=== PATIENT | female | born 2000 | race Caucasian/White ===

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

== ENCOUNTER 2022-02-16 13:08 | Emergency (ER) | payer BC, SELFPAY ==
[2022-02-16 13:10] VITALS: BP 114/79; PULSE 85; RESP 18; TEMP 36.7; O2SAT 98; BMI 29.5
--- NOTE | 2022-02-16 17:36 | ED.VIS.GI ---
HPI HPI - GI History of Present Illness Chief Complaint: Nausea/Vomiting Narrative Narrative: 21-year-old female, G1, P0 at approximately 11 weeks gestation presents because she states she has been vomiting since Wednesday, 2 days ago. She is unable to hold down any food or liquid. She denies any vaginal bleeding or abdominal pain. No chest pain or shortness of breath, no fevers or chills, no dysuria. She states she is already on medication for morning sickness but does not remember which one it is. She sees Dr. Yeny Rodriguez at the [facility] as her SALES RECEPTIONIST. She states that she even vomits her antinausea medications. She does feel somewhat weak and tired from her multiple episodes of vomiting. She states she vomited at least 20 times in the last 24 hours. No diarrhea or other symptoms. PFSH PFSH Home Medications doxylamine 10 mg-pyridoxine (vit B6) 10 mg tablet,delayed release 2 tab PO QHS 02/16/22 [History Last Taken Unknown] ondansetron 4 mg disintegrating tablet 4 mg PO Q6H PRN nausea and vomiting #20 tabs 02/16/22 [Rx Last Taken Unknown] Allergy/AdvReac Type Severity Reaction Status Date / Time No Known Allergies Allergy Verified 02/16/22 13:10 Surgical History History of placement of ear tubes Social History (Updated 04/21/17 @ 09:07 by Ishaan Rhodes DO) Smoking Status: Former smoker ROS ROS ED ROS Narrative Constitutional: No fever, no chills. HEENT: No sore throat. No neck pain. No loss of vision. No rhinorrhea. Cardiovascular: No chest pain. No palpitations. No pedal edema. Respiratory: No cough, no shortness of breath. Abdominal: No abdominal pain. Positive nausea. Multiple episodes of vomiting. Genitourinary: No dysuria. No hematuria. 11 weeks gestation with . Musculoskeletal: No myalgias. No arthralgias. Neurologic: No headaches. No dizziness. No lightheadedness. Skin: No rash. No change in color. Psychiatric: No depression. No anxiety. EXAM Physical Exam Narrative Exam Narrative: Afebrile. Vital signs noted. HEENT: Normocephalic. Atraumatic. PERRL, EOMI. Neck soft and supple. No point tenderness or step off. Cardiovascular: Regular rate and rhythm. No murmurs, rubs, or gallops appreciated. Respiratory: No tachypnea. Lungs clear to auscultation bilaterally. Gastrointestinal: Abdomen soft, nontender, with normoactive bowel sounds. No rebound or guarding. Neurological: Awake. Alert. Nonfocal, nonlateralizing. Skin: No rash. Normal color. No pallor. Musculoskeletal: No pedal edema. Full range of motion extremities. Const Vital Signs: 02/16/22 13:10 02/16/22 19:33 Temperature 98.1 F Temperature Source Temporal Pulse Rate 85 74 Respiratory Rate 18 18 Blood Pressure 114/79 111/58 L Blood Pressure Mean 90 75 Pulse Ox 98 99 Oxygen Delivery Method Room Air Room Air MDM MDM MDM Narrative Medical decision making narrative: PretestPatient is afebrile here, not tachycardic. She will be given a bolus of IV fluids, normal saline along with Reglan 5 mg intravenously. I will check a CBC, CMP, urinalysis and discussed the patient with SALES RECEPTIONIST. Should she fail p.o. challenge, she may require admission for her hyperemesis gravidarum. CBC shows slightly elevated white count of 12.6 which I think is demargination from her vomiting. She has normal hemoglobin of 13.0, platelet count 321 seems a little over 3.4. Urinalysis is a contaminated specimen with 5-10 squamous epithelial cells but positive nitrites. There were 150 ketones. This was sent for culture. She is not having dysuria, I do not feel antibiotics are indicated currently because I feel it is a contaminated specimen. After Reglan and IV bolus, she states she is feels tired, but has not had vomiting in the emergency department and her nausea has improved. I discussed patient with the wood mill supervisor, Rupinder, who suggested Zofran ODT's as second line as her vitamin B6 is not effective in treating her nausea and vomiting. She will follow-up with her SALES RECEPTIONIST, Dr. Rodriguez. She states she has an appointment a week from today. I feel she be discharged safely home with follow-up. Return instructions were reviewed. Disposition is discharged home in stable condition. Lab Data Attestation: I reviewed the patient's lab results. Labs: Laboratory Results - last 24 hr 11/02/16/22 02/16/22 17:50 17:50 19:31 WBC 12.6 H RBC 4.35 Hgb 13.0 Hct 38.2 MCV 87.8 MCH 29.9 MCHC 34.0 RDW Std Deviation 38.9 RDW Coeff of Maryana 12.0 Plt Count 321 MPV 10.3 Immature Gran % (Auto) 0.400 Neut % (Auto) 82.3 H Lymph % (Auto) 12.6 L Zavala % (Auto) 4.2 Eos % (Auto) 0.3 Baso % (Auto) 0.2 Absolute Neuts (auto) 10.4 H Absolute Lymphs (auto) 1.59 Nucleated RBC % 0 Sodium 137 Potassium 3.4 L Chloride 105 Carbon Dioxide 24.0 Anion Gap 8 BUN 8 Creatinine 0.62 Estim Creat Clear Calc 150.00 Est GFR (MDRD) Af Amer 156 Est GFR (MDRD) Non-Af 129 BUN/Creatinine Ratio 12.9 Glucose 84 Calcium 9.9 Total Bilirubin 0.40 AST 12 L ALT 25 Alkaline Phosphatase 83 Total Protein 8.4 H Albumin 4.1 Globulin 4.3 H Albumin/Globulin Ratio 1.0 Urine Color Yellow Urine Clarity Sl. Cloudy Urine pH 6.0 Ur Specific [employer] 1.025 Urine Protein 15 H Urine Glucose (UA) Normal Urine Ketones 150 A* Urine Occult Blood Negative Urine Nitrite Positive H Urine Bilirubin Negative Urine Urobilinogen Normal Ur Leukocyte Esterase 25 H Urine RBC 0 SEEN Urine WBC 5-10 SEEN Ur Squamous Epith Cells 5-10 SEEN Urine Bacteria 3+ Urine Mucus 0 SEEN Discharge Plan Triage Chief Complaint: Nausea/Vomiting ED Provider: Lionel Bauer Dx/Rx/DC Orders Clinical Impression: Nausea and vomiting during prior to 22 weeks gestation, Antepartum dehydration Instructions: ED Hyperemesis Gravidarum, ED Vomiting (Adult) Prescriptions: New ondansetron 4 mg tablet,disintegrating 4 mg PO Q6H PRN (Reason: nausea and vomiting) Qty: 20 0RF No Action doxylamine-pyridoxine (vit B6) 10-10 mg tablet,delayed release (DR/EC) 2 tab PO QHS Label Comments: PLEASE SEE ATTACHED FOR DETAILED DIRECTIONS Primary Care Provider: Care Physician,No Primary Referrals: Yeny Rodriguez MD [Med Staff - Active Staff] - Keep [facility] appointment Care Physician,No Primary [Primary Care Provider] - Disposition Disposition: Home, Self Care
[2022-02-16] MEDS: 0.9% Normal Saline 1,000 ML 999 ML IV (17:46)
[2022-02-16] MEDS: Metoclopramide 10 MG/2 ML Vial 5 MG IV (17:55)
[2022-02-16 18:02] LABS: Absolute Lymphocyte Count 1.59 X10^3/uL (0.83-4.51); Absolute Neutrophil Count 10.4 X10^3/uL (2.0-7.7); Basophil# 0.03 X10^3/uL; Basophil% 0.2 % (0-1); Eosinophil# 0.04 X10^3/uL; Eosinophils% 0.3 % (0-5); Hematocrit 38.2 % (37-47); Lymphocyte # 1.59 X10^3/ul (0.83-4.51); Lymphocyte % 12.6 % (19-41); Mean Corpuscular Hgb 29.9 pg (27.0-32.0); Mean Corpuscular Volume 87.8 fL (81-99); Mean Platelet Vol. 10.3 fl (6.2-12.0); Monocyte# 0.53 X10^3/uL; Monocyte% 4.2 % (0-10); NRBC Flagged by Analyzer 0 % (0-5); Neutrophil # 10.36 X10^3/uL (2.7-7.7); Neutrophil % 82.3 % (47-70); Platelet Count 321 K/mm3 (150-450); RBC Distribution Width SD 38.9 fl (35.1-43.9); Red Blood Count 4.35 M/mm3 (4.2-5.4); White Blood Count 12.6 K/mm3 (4.4-11.0)
[2022-02-16 18:21] LABS: AST(SGOT) 12 U/L (15-37); Alanine Aminotransfer ALT/SGPT 25 U/L (13-56); Albumin, Serum 4.1 g/dL (3.2-5.0); Alkaline Phosphatase 83 U/L (45-117); Anion Gap 8 (5-15); BUN 8 mg/dL (7-18); BUN/Creat Ratio 12.9 RATIO (10-20); Calcium,Total 9.9 mg/dL (8.5-10.1); Chloride 105 mmol/L (98-107); Creatinine, Serum 0.62 mg/dL (0.55-1.02); EST Glomerular Filtration Rate 129 mL/min (>60); Est Glom Filt Rate - Afr Amer 156 mL/min (>60); Globulin 4.3 g/dL (2.2-4.2); Glucose 84 mg/dL (74-106); Potassium 3.4 mmol/L (3.5-5.1); Protein, Total 8.4 g/dL (6.4-8.2); Sodium Level 137 mmol/L (136-145)
[2022-02-16 19:33] VITALS: BP 111/58; PULSE 74; RESP 18; O2SAT 99
[2022-02-16 19:39] LABS: Mucous, Urine 0 SEEN /hpf (<or=2+); Red Blood Cells-Urine 0 SEEN /hpf (0-5)
[2022-02-16 19:41] LABS: Color, Urine Yellow (Yellow); Glucose, Dipstick Normal (Normal); Leukocyte Esterase-Dipstick 25 /ul (Negative); Nitrite-Dipstick Positive (Negative); Occult Blood-Urine Negative /ul (Negative); Protein-Dipstick 15 mg/dl (Negative); Specific Gravity, Urine 1.025 (1.002-1.030); Urine Bilirubin Dipstick Negative (Negative); Urine Clarity Sl. Cloudy (Clear); Urine Urobilinogen Normal (Normal)
[2022-02-16 19:44] LABS: Ketone-Dipstick 150 mg/dl (Negative)
[2022-02-16 19:47] LABS: Squamous Epithelial Cells - UA 5-10 SEEN /hpf (5-10); White Blood Cells 5-10 SEEN /hpf (0-5)
[2022-02-16 19:48] LABS: Bacteria 3+ /hpf (None Seen)
== END 2022-02-16 20:23 | disposition home or self-care (01) ==
PROVIDERS: Emergency Provider Emergency Medicine; Visit Provider Emergency Medicine
DX: O21.9 Vomiting of pregnancy, unspecified (principal); Z3A.11 11 weeks gestation of pregnancy; Z87.891 Personal history of nicotine dependence
CPT/HCPCS: 80053; 81001; 85025; 87077; 87086; 87088; 87186; 96374; 99283; J7030; A4216

== ENCOUNTER 2022-05-30 23:45 | Outpatient (CLI) | payer BC, SELFPAY ==
[2022-05-30 23:59] VITALS: TEMP 37
[2022-05-31] VITALS: BP 110/57; PULSE 77
[2022-05-31 00:02] VITALS: BMI 29.9
[2022-05-31 00:17] LABS: Mucous, Urine 0 SEEN /hpf (<or=2+); Red Blood Cells-Urine 0 SEEN /hpf (0-5)
[2022-05-31 00:19] LABS: Color, Urine Yellow (Yellow); Glucose, Dipstick Normal (Normal); Ketone-Dipstick Negative (Negative); Leukocyte Esterase-Dipstick 25 /ul (Negative); Nitrite-Dipstick Negative (Negative); Occult Blood-Urine Negative /ul (Negative); Protein-Dipstick Negative (Negative); Urine Bilirubin Dipstick Negative (Negative); Urine Clarity Sl. Cloudy (Clear); Urine Urobilinogen Normal (Normal)
[2022-05-31 00:32] LABS: Bacteria RARE /hpf (None Seen); Squamous Epithelial Cells - UA 0-5 SEEN /hpf (5-10); White Blood Cells 0-5 SEEN /hpf (0-5)
[2022-05-31] MEDS: Acetaminophen 500 MG Tablet 1000 MG PO (00:44)
--- NOTE | 2022-05-31 08:22 | OB.TRI.NOTE ---
HPI - General HPI Narrative ANDRADE TIAN, is a 21 F at 25.3 weeks gestation who presents to triage with pain in lower left groin area. Pain started earlier today and is a constant pain. Worsens with position changes. Has not taken any pain medication for pain. Denies any dysuria, loss of fluid, vaginal bleeding or cramping. Positive movement. Maternal Data Information WILLIAM Calculator Estimated Delivery Date Method Current WG Current Estimate 09/09/22 Manual 25w 4d PFSH PFSH Home Medications doxylamine 10 mg-pyridoxine (vit B6) 10 mg tablet,delayed release 2 tab PO QHS 02/16/22 [History Last Taken Unknown] ondansetron 4 mg disintegrating tablet 4 mg PO Q6H PRN nausea and vomiting #20 tabs 02/16/22 [Rx Last Taken Unknown] Allergy/AdvReac Type Severity Reaction Status Date / Time No Known Allergies Allergy Verified 02/16/22 13:10 Surgical History History of placement of ear tubes Social History (Updated 04/21/17 @ 09:07 by Ishaan Rhodes DO) Smoking Status: Former smoker ROS Eyes Eyes: Denies blurry vision Cardiovascular Cardiovascular: Reports none; Denies chest pain at rest, chest pain with activity or dizziness Respiratory/Chest Respiratory/Chest: Denies cough or dyspnea Gastrointestinal Gastrointestinal: Reports none and other; Denies diarrhea or vomiting Genitourinary Genitourinary: Denies dysuria Musculoskeletal Musculoskeletal: Reports none Integumentary Integumentary: Reports none; Denies rash Neurologic Neurologic: Denies dizziness, headache(s) or other visual disturbances Psychiatric Psychiatric: Reports none Physical Exam Const alert and no apparent distress General Appearance: cooperative and comfortable Exam Limitations: no limitations HEENT normocephalic Eyes General Eye: normal appearance of both eyes Neck full ROM General: normal visual inspection Chest Chest: symmetrical chest wall rise Resp normal respiratory effort and normal air movement Effort and Inspection: symmetric chest movement Auscultation: clear to auscultation bilaterally Cardio regular rate and regular rhythm GI normal to inspection, nondistended, normoactive bowel sounds Back/Spine normal ROM Extremity full ROM and no calf tenderness General Extremity: normal exam except as noted Skin no rashes or lesions noted Neuro CN's II-XII intact bilaterally Psych mental status grossly normal NST FHR Rate Baby A Baseline: 140 Uterine Activity:: None via TOCO or palpation Assessment & Plan (1) Abdominal pain in female: (2) 25 weeks gestation of : (3) Round ligament pain: PLAN: Plan UA- negative TOCO- NO contractions seen or palpated Round ligament pain Stretching exercises, chiropractor, massage, heat/ice PTL precautions and kick counts reviewed D/C home with follow up in office
--- NOTE | 2022-05-31 08:34 | OB.TRI.NOTE ---
HPI - General HPI Narrative ANDRADE TIAN, is a 21 F at 25.3 weeks gestation who presents with lower left groin/abdominal pain. Reports pain started earlier today and has continued. Worsens with position changes and movement. Has not taken any medications for pain. Denies dysuria, fever, loss of fluid or vaginal bleeding. Positive movement. Maternal Data Information WILLIAM Calculator Estimated Delivery Date Method Current WG Current Estimate 09/09/22 Manual 25w 4d PFSH PFSH Home Medications doxylamine 10 mg-pyridoxine (vit B6) 10 mg tablet,delayed release 2 tab PO QHS 02/16/22 [History Last Taken Unknown] ondansetron 4 mg disintegrating tablet 4 mg PO Q6H PRN nausea and vomiting #20 tabs 02/16/22 [Rx Last Taken Unknown] Allergy/AdvReac Type Severity Reaction Status Date / Time No Known Allergies Allergy Verified 02/16/22 13:10 Surgical History History of placement of ear tubes Social History (Updated 04/21/17 @ 09:07 by Ishaan Rhodes DO) Smoking Status: Former smoker ROS Eyes Eyes: Denies blurry vision Cardiovascular Cardiovascular: Reports none; Denies chest pain at rest, chest pain with activity or dizziness Respiratory/Chest Respiratory/Chest: Denies cough or dyspnea Gastrointestinal Gastrointestinal: Reports none and other; Denies diarrhea or vomiting Genitourinary Genitourinary: Denies dysuria Musculoskeletal Musculoskeletal: Reports none Integumentary Integumentary: Reports none; Denies rash Neurologic Neurologic: Denies dizziness, headache(s) or other visual disturbances Psychiatric Psychiatric: Reports none NST FHR Rate Baby A Baseline: 140 Assessment & Plan (1) Round ligament pain: (2) 25 weeks gestation of : (3) Abdominal pain in female: PLAN: Plan UA- negative TOCO- no contractions palpated Increase fluid intake Round ligament pain- heat/ice, massage therapy, support belt Tylenol 1000 mg PO x 1 now D/C home with follow up in office
== END 2022-05-31 00:53 | disposition home or self-care (01) ==
LOC: WPOUT 23:49 → WP 23:50
PROVIDERS: Visit Provider Advanced Practice Midwife
DX: O26.892 Other specified pregnancy related conditions, second trimester (principal); R10.2 Pelvic and perineal pain; Z3A.25 25 weeks gestation of pregnancy
CPT/HCPCS: 59025; 59050; 81001; 99221; G0378

== ENCOUNTER 2022-07-20 16:45 | Outpatient (CLI) | payer BC, SELFPAY ==
[2022-07-20 17:02] VITALS: TEMP 36; O2SAT 97
[2022-07-20 17:03] VITALS: BP 117/68; PULSE 89
[2022-07-20 17:07] VITALS: BMI 31.8
[2022-07-20 17:53] LABS: ROM Internal Control Test YES-OK TO RESULT pt. (Internal QC); ROM Patient Test Negative (Negative)
--- NOTE | 2022-07-20 20:05 | OB.TRI.NOTE ---
HPI - General General Date of Service: 07/20/22 HPI Narrative ANDRADE TIAN, is a 21 F @ 32.5 weeks who presents c/o SROM Maternal Data Information WILLIAM Calculator Estimated Delivery Date Method Current WG Current Estimate 09/09/22 Manual 32w 5d PFSH PFSH Home Medications [id number] fum 28 mg-folic acid 800 mcg-dha 200 mg oral pack ( + DHA) 1 pkg PO DAILY 07/20/22 [History Last Taken Unknown] Allergy/AdvReac Type Severity Reaction Status Date / Time No Known Allergies Allergy Verified 07/20/22 17:08 Surgical History History of placement of ear tubes Social History (Updated 04/21/17 @ 09:07 by Ishaan Rhodes DO) Smoking Status: Former smoker NST FHR Rate Baby A Baseline: 135 Variability:: Moderate Accelerations:: 15 x 15 Decelerations:: None NST Reactive:: Yes FHR Category:: Category I Uterine Activity:: no ctx Assessment & Plan (1) 32 weeks gestation of : (2) Intact amniotic membranes: (3) False labor: PLAN: Plan @ 32.5 weeks membranes intact-not in labor nst reactive cat 1 Membranes intact dc home
== END 2022-07-20 18:15 | disposition home or self-care (01) ==
LOC: WPOUT 16:47 → WP 16:48
PROVIDERS: Referring Provider Obstetrics & Gynecology; Visit Provider Obstetrics & Gynecology
DX: O47.03 False labor before 37 completed weeks of gestation, third trimester (principal); Z87.891 Personal history of nicotine dependence; Z3A.32 32 weeks gestation of pregnancy
CPT/HCPCS: 59025; 59050; 84112

== ENCOUNTER 2022-07-28 18:55 | Outpatient (CLI) | payer BC, SELFPAY ==
[2022-07-28 19:19] VITALS: BP 98/55; PULSE 96; TEMP 36.8; O2SAT 97
[2022-07-28 19:22] VITALS: BMI 32.3
[2022-07-28 19:26] LABS: Color, Urine Yellow (Yellow); Glucose, Dipstick Normal (Normal); Ketone-Dipstick 5 mg/dl (Negative); Leukocyte Esterase-Dipstick 100 /ul (Negative); Nitrite-Dipstick Negative (Negative); Occult Blood-Urine Negative /ul (Negative); Protein-Dipstick 15 mg/dl (Negative); Urine Bilirubin Dipstick Negative (Negative); Urine Clarity Sl. Cloudy (Clear); Urine Urobilinogen 1 mg/dl (Normal)
[2022-07-28 19:45] VITALS: BP 117/67; PULSE 86
--- NOTE | 2022-08-10 08:32 | OB.TRI.HP_ITS ---
HPI - General HPI Narrative ANDRADE TIAN, is a 21 F who presents at 33w6d with multiple complaints . Abdominal cramping, back pain and headache. No visual changes. Maternal Data Information WILLIAM Calculator Estimated Delivery Date Method Current WG Current Estimate 09/09/22 Manual 35w 5d PFSH PFSH Home Medications [id number] fum 28 mg-folic acid 800 mcg-dha 200 mg oral pack ( + DHA) 1 pkg PO DAILY 07/20/22 [History Last Taken 07/27/22 21:00] Allergy/AdvReac Type Severity Reaction Status Date / Time No Known Allergies Allergy Verified 07/28/22 19:35 Surgical History History of placement of ear tubes Social History (Updated 04/21/17 @ 09:07 by Ishaan Rhodes DO) Smoking Status: Former smoker Visit Details OB Flowsheet Initial Weight: Not Recorded Date -?-?-?-?-?-?-?-?-?-?-?-?- EGA Weight BP Urine Prot -?-?-?-?-?-?-?-?-?-?-?-?- Glucose FHR FuHt Pres Dilation -?-?-?-?-?-?-?-?-?-?-?-?- Effaced St Visit Note 07/28/22 -?-?-?-?-?-?-?-?-?-?-?-?- 33w 6d 219 lb 3.2 oz 98/55 117/67 15 mg/dl (Negative) H -?-?-?-?-?-?-?-?-?-?-?-?- -?-?-?-?-?-?-?-?-?-?-?-?- NST FHR Rate Baby A Baseline: 125 Variability:: Moderate Accelerations:: 15 x 15 Decelerations:: None NST Reactive:: Yes Uterine Activity:: None Assessment & Plan (1) False labor: (2) Intact amniotic membranes: (3) 32 weeks gestation of : (4) Round ligament pain: (5) Abdominal pain in female: PLAN: Plan 1) No signs of labor 2) Urine culture sent 3) Tylenol for headache and preeclampsia symptoms reviewed. BP stable 4) D/C home and instructions on when to return.
== END 2022-07-28 20:10 | disposition home or self-care (01) ==
LOC: WPOUT 19:02 → WP 19:02
PROVIDERS: Referring Provider Advanced Practice Midwife; Visit Provider Advanced Practice Midwife
DX: O47.03 False labor before 37 completed weeks of gestation, third trimester (principal); Z3A.32 32 weeks gestation of pregnancy
CPT/HCPCS: 59025; 59050; 81002; 87086; 87088; 99221; G0378

== ENCOUNTER 2022-08-13 15:56 | Emergency (ER) | payer BC, SELFPAY ==
[2022-08-13 15:59] VITALS: BP 111/68; PULSE 111; RESP 18; TEMP 36.8; O2SAT 98; BMI 31.8
--- NOTE | 2022-08-13 16:56 | EKG12_ITS ---
Test Reason : SOB Blood Pressure : / mmHG Vent. Rate : 085 BPM Atrial Rate : 085 BPM P-R Int : 144 ms QRS Dur : 082 ms QT Int : 360 ms P-R-T Axes : 009 055 -05 degrees QTc Int : 428 ms Normal sinus rhythm Nonspecific T wave abnormality Abnormal ECG Confirmed by SAVI RANDHAWA, SMITA ([id number]), staff editor REMI MENDOZA ([id number]) on 08/14/2022 8:54:41 AM Referred By: CARRIE Confirmed By:SMITA HOU MD
--- NOTE | 2022-08-13 16:56 | EX.ED.DYSGE1 ---
HPI History of Present Illness Chief Complaint: Shortness of Breath Narrative Narrative: 21-year-old female currently 36 weeks gestation with established OB care with Dr. Rodriguez. Patient states that about 2:00 she started to have some epigastric discomfort which kind of radiated across the underside of her diaphragm. She became nauseous and vomited. She has been having some vomiting episodes in . She did take some Tums. She then had another episode of vomiting and had some diarrhea. She has not had a fever. She does not have a cough. She states he is having trouble taking a deep breath due to the sensation under her diaphragm. She does not have sharp pleuritic chest pain. She does not have chest pressure. No history of cardiac disease. No history of DVT/PE. No urinary symptoms. She states she did eat some tacos today. PFSH PFSH Home Medications [id number] fum 28 mg-folic acid 800 mcg-dha 200 mg oral pack ( + DHA) 1 pkg PO DAILY 07/20/22 [History Last Taken 07/27/22 21:00] ondansetron 4 mg disintegrating tablet 4 mg PO Q8H PRN PRN Nausea #14 tabs 08/13/22 [Rx Last Taken Unknown] Allergy/AdvReac Type Severity Reaction Status Date / Time No Known Allergies Allergy Verified 08/13/22 16:00 Surgical History History of placement of ear tubes Social History Smoking Status: Former smoker ROS ROS ED Constitutional Constitutional ED: Denies chills, fever(s) or sweats Eyes Eyes: Denies blurry vision or change in vision ENT ENT ED: Denies ear pain or sore throat Cardiovascular Cardiovascular: Denies chest pain, palpitations or racing heartbeat Respiratory/Chest Respiratory/Chest: Denies cough, dyspnea or sputum Gastrointestinal Gastrointestinal: Reports abdominal pain, diarrhea, nausea and vomiting; Denies constipation Genitourinary Genitourinary ED: Denies dysuria, hematuria or urinary frequency Musculoskeletal Musculoskeletal: Denies arthralgias, myalgias or neck pain Integumentary Denies abscess, Abrasions or rash Neurologic Neurologic: Denies headache(s), paresthesias or weakness Psychiatric Psychiatric: Denies anxiety, depression, suicidal ideation or suicidal thoughts Endocrine Endocrinology: Denies polydipsia or polyuria EXAM Physical Exam Const Vital Signs: 08/13/22 15:59 08/13/22 16:56 08/13/22 17:42 Temperature 98.3 F Temperature Source Temporal Pulse Rate 111 H Respiratory Rate 18 Respiratory Effort Short of Breath Respiratory Depth Normal Respiratory Pattern Normal Blood Pressure 111/68 Blood Pressure Mean 82 Pulse Ox 98 Oxygen Delivery Method Room Air Room Air Room Air 08/13/22 16:58 08/13/22 17:58 08/13/22 18:58 Temperature Temperature Source Pulse Rate Respiratory Rate 18 18 18 Respiratory Effort Respiratory Depth Respiratory Pattern Blood Pressure Blood Pressure Mean Pulse Ox Oxygen Delivery Method 08/13/22 19:24 08/13/22 20:00 Temperature Temperature Source Pulse Rate 80 84 Respiratory Rate 17 14 Respiratory Effort Respiratory Depth Respiratory Pattern Blood Pressure 119/82 H 109/70 Blood Pressure Mean 94 83 Pulse Ox 99 94 Oxygen Delivery Method Room Air Room Air Positive well nourished General Appearance ED: NAD; Negative for pallor HEENT Reports moist mucous membranes Eyes PERRL and EOMs intact bilaterally General Eye ED: Negative for pale conjunctiva or scleral icterus Neck no lymphadenopathy Chest Wall inspection of chest normal Resp normal respiratory effort and clear to auscultation bilaterally Auscultation: Negative for rales, rhonchi or wheezes Cardio regular rhythm Rate: tachycardic GI GI Narrative: Gravid. Epigastric tenderness. Palpation: Negative for guarding or rebound tenderness present Extremity normal to inspection Neuro oriented x3 and CN's II-XII intact bilaterally Sensorium / Orientation: alert Motor Exam: strength 5/5 throughout Psych mental status grossly normal Skin no rashes or lesions noted General Skin Exam: Negative for jaundice or pallor MDM MDM MDM Narrative Medical decision making narrative: Patient presenting complaining of chest pain but it seems to be more abdominal in nature. She is having epigastric discomfort that radiates under her diaphragm and she is having nausea vomiting and diarrhea. She does state that with her current at 36 weeks he is having trouble taking a deep breath but she does not have any sharp or pleuritic chest pain. Patient does report that she feels like she is a little bit short of breath. Patient is tachycardic but otherwise her vital signs are stable. Differential includes ACS, PE, pneumonia, pancreatitis, gastritis, cholecystitis. CBC to assess white blood cell count, hemoglobin, platelets, differential. CMP to assess liver function, renal function, electrolytes, glucose, anion gap. Lipase to assess for pancreatitis. EKG, high-sensitivity troponin will be added as well. CBC shows slight leukocytosis of 14.3. Hemoglobin 10.5 and stable. EKG shows a sinus rhythm with a ventricular 96 bpm without sign ischemic change or ectopy. CMP unremarkable with exception of an alkaline phosphatase of 168. Urinalysis negative for infection. I did not obtain a chest x-ray but I did order a D-dimer to see if this was elevated. This was elevated and I did discuss with the patient. Risk benefits were discussed and she wants to go ahead with a CTA. CTA of the chest was negative for PE or dissection. There is no pneumonia. She is counseled on this. She was questioning Zofran so this was provided. Patient was standing on the bed stating that she was getting waves of pain and she was breathing heavily. Nursing staff was concerned for possible contractions. We had OB triage come over and evaluate the patient. She is 1.5 cm dilated. She did not lose any fluid. heart tones were normal. They were in the 140s. Her work-up is ultimately negative I feel she stable for discharge home. I will have her follow-up with her OB. She will be given a prescription for Zofran as well. Impression: 1. nausea/vomiting 2. Diarrhea 3. chest pain Lab Data Labs: Laboratory Results - last 24 hr 08/13/22 08/13/22 08/13/22 17:40 17:40 17:40 WBC 14.3 H RBC 3.75 L Hgb 10.5 L Hct 33.0 L MCV 88.0 MCH 28.0 MCHC 31.8 L RDW Std Deviation 41.0 RDW Coeff of Maryana 12.7 Plt Count 335 MPV 11.1 Immature Gran % (Auto) 0.900 Neut % (Auto) 82.4 H Lymph % (Auto) 11.3 L [place] % (Auto) 4.8 Eos % (Auto) 0.4 Baso % (Auto) 0.2 Absolute Neuts (auto) 11.8 H Absolute Lymphs (auto) 1.62 Nucleated RBC % 0 D-Dimer Quant (PE/DVT) 0.73 H* Sodium Potassium Chloride Carbon Dioxide Anion Gap BUN Creatinine Estim Creat Clear Calc Est GFR (MDRD) Af Amer Est GFR (MDRD) Non-Af BUN/Creatinine Ratio Glucose Calcium Total Bilirubin AST ALT Alkaline Phosphatase Troponin I High Sens 5 Total Protein Albumin Globulin Albumin/Globulin Ratio Lipase 37 Urine Color Urine Clarity Urine pH Ur Specific [place] Urine Protein Urine Glucose (UA) Urine Ketones Urine Occult Blood Urine Nitrite Urine Bilirubin Urine Urobilinogen Ur Leukocyte Esterase Urine RBC Urine WBC Ur Squamous Epith Cells Triple Phos Crystals Amorphous Sediment Urine Bacteria Urine Mucus 08/13/22 08/13/22 17:43 19:15 WBC RBC Hgb Hct MCV MCH MCHC RDW Std Deviation RDW Coeff of Maryana Plt Count MPV Immature Gran % (Auto) Neut % (Auto) Lymph % (Auto) [place] % (Auto) Eos % (Auto) Baso % (Auto) Absolute Neuts (auto) Absolute Lymphs (auto) Nucleated RBC % D-Dimer Quant (PE/DVT) Sodium 138 Potassium 3.8 Chloride 106 Carbon Dioxide 24.0 Anion Gap 8 BUN 7 Creatinine 0.59 Estim Creat Clear Calc 157.63 Est GFR (MDRD) Af Amer 165 Est GFR (MDRD) Non-Af 136 BUN/Creatinine Ratio 11.9 Glucose 78 Calcium 9.1 Total Bilirubin 0.40 AST 23 ALT 24 Alkaline Phosphatase 168 H Troponin I High Sens Total Protein 7.0 Albumin 2.7 L Globulin 4.3 H Albumin/Globulin Ratio 0.6 L Lipase Urine Color Yellow Urine Clarity Sl. Cloudy Urine pH 8.0 Ur Specific [place] 1.015 Urine Protein 15 H Urine Glucose (UA) Normal Urine Ketones Negative Urine Occult Blood Negative Urine Nitrite Negative Urine Bilirubin Negative Urine Urobilinogen 1 H Ur Leukocyte Esterase 25 H Urine RBC 0-5 SEEN Urine WBC 0-5 SEEN Ur Squamous Epith Cells 0-5 SEEN Triple Phos Crystals RARE Amorphous Sediment 1+ PHOS Urine Bacteria 1+ Urine Mucus RARE Radiography Diagnostic Testing: Clinical Impression(s) from Imaging Studies Chest CTA 08/13/22 18:42 IMPRESSION: Normal CTA chest examination, without a demonstrated pulmonary embolism or arterial dissection. AIDOC was utilized to assist in identifying pertinent positive findings in this case. Electronically Signed: Natalio Armstrong DO at 19:39 EDT Reading Location ID and State: [facility] / [place] Tel [phone], Service support , Discharge Plan Triage Chief Complaint: Shortness of Breath ED Provider: John Fletcher Dx/Rx/DC Orders Instructions: ED Chest Pain, Noncardiac, ED Diet Vomiting Diarrhea Prescriptions: New ondansetron 4 mg tablet,disintegrating 4 mg PO Q8H PRN PRN (Reason: Nausea) Qty: 14 0RF No Action + DHA 28 mg iron-800 mcg-200 mg Combo Pack 1 pkg PO DAILY Primary Care Provider: Care Physician,No Primary Referrals: Care Physician,No Primary [Primary Care Provider] - Disposition Disposition: Home, Self Care
[2022-08-13 16:58] VITALS: RESP 18
[2022-08-13 17:58] VITALS: RESP 18
[2022-08-13 18:17] LABS: Color, Urine Yellow (Yellow); Glucose, Dipstick Normal (Normal); Ketone-Dipstick Negative (Negative); Leukocyte Esterase-Dipstick 25 /ul (Negative); Nitrite-Dipstick Negative (Negative); Occult Blood-Urine Negative /ul (Negative); Protein-Dipstick 15 mg/dl (Negative); Specific Gravity, Urine 1.015 (1.002-1.030); Urine Bilirubin Dipstick Negative (Negative); Urine Clarity Sl. Cloudy (Clear); Urine Urobilinogen 1 mg/dl (Normal)
[2022-08-13 18:26] LABS: Lipase 37 U/L (13-75); Troponin-I HS (w/2H Reflex) 5 pg/mL (3.0-54.0)
[2022-08-13 18:30] LABS: Absolute Lymphocyte Count 1.62 X10^3/uL (0.83-4.51); Absolute Neutrophil Count 11.8 X10^3/uL (2.0-7.7); Basophil# 0.03 X10^3/uL; Basophil% 0.2 % (0-1); Eosinophil# 0.06 X10^3/uL; Eosinophils% 0.4 % (0-5); Hemoglobin 10.5 g/dL (12.0-15.0); Lymphocyte # 1.62 X10^3/ul (0.83-4.51); Lymphocyte % 11.3 % (19-41); Mean Corp Hgb Conc 31.8 g/dL (32-36); Mean Platelet Vol. 11.1 fl (6.2-12.0); Monocyte# 0.68 X10^3/uL; Monocyte% 4.8 % (0-10); NRBC Flagged by Analyzer 0 % (0-5); Neutrophil # 11.77 X10^3/uL (2.7-7.7); Neutrophil % 82.4 % (47-70); Platelet Count 335 K/mm3 (150-450); RBC Distribution Width CV 12.7 % (11.6-14.6); Red Blood Count 3.75 M/mm3 (4.2-5.4); White Blood Count 14.3 K/mm3 (4.4-11.0)
--- NOTE | 2022-08-13 18:30 | ED.RN ---
PT LEANING OVER BED, SWAYING BACK AND FORTH. PT STATES SHE HAS EPISODES OF PAIN IN BACK RADIATING AROUND TO RIBS AND CHEST. PT STATES THIS IS THE ONLY WAY I'M COMFORTABLE. UPDATED, HE REQUESTED OB COME EVALUATE PT. CALL PLACED TO OB CHARGE, THEY WILL COME TO ED AND EVALUATE PT.
[2022-08-13 18:41] LABS: D-Dimer Quantitative (DVT/PE) 0.73 FEU/ug/m (0.27-0.49)
--- NOTE | 2022-08-13 18:42 | CT_ITS ---
STUDY: CTA CHEST REASON FOR EXAM: Female, 21 years old. Chest pain. Elevated d-dimer. Shortness of breath. 36 week . RADIATION DOSAGE (If Supplied By Facility): CTDIvol = ( 12.40 ) mGy, DLP = ( 468.99 ) mGycm TECHNIQUE: The examination was performed with the intravenous administration of IV 100mL Isovue-370. Post-processing of the angiographic images was performed, with multiplanar reformation and 3D reconstruction. Individualized dose optimization techniques were used for this CT. COMPARISON: None. FINDINGS: Normal enhancement of the main pulmonary artery and right and left pulmonary arteries. Normal enhancement of the bilateral peripheral pulmonary arteries. There is no demonstrated pulmonary embolism. Normal thoracic aorta and visualized great vessels. There is no demonstrated aortic dissection. Normal heart and pericardium. No coronary artery calcifications. Normal mediastinum. Normal hilar regions. Normal visualized trachea and bronchi. The lungs are well expanded. Normal pulmonary parenchyma. Normal pleura. Normal chest wall structures. Normal osseous structures. Normal visualized upper abdomen. CT/CTA Chest W/WO Contrast IMPRESSION: Normal CTA chest examination, without a demonstrated pulmonary embolism or arterial dissection. AIDOC was utilized to assist in identifying pertinent positive findings in this case. Electronically Signed: Natalio Armstrong DO at 19:39 EDT Reading Location ID and State: [facility] / [place] Tel [phone], Service support ,
[2022-08-13 18:58] VITALS: RESP 18
[2022-08-13 19:22] LABS: Bacteria 1+ /hpf (None Seen); Mucous, Urine RARE /hpf (<or=2+); Red Blood Cells-Urine 0-5 SEEN /hpf (0-5); Squamous Epithelial Cells - UA 0-5 SEEN /hpf (5-10); White Blood Cells 0-5 SEEN /hpf (0-5)
[2022-08-13 19:23] LABS: Amorphous Sediment 1+ PHOS; Triple Phosphate Crystals Ur RARE /hpf (<or=1+)
[2022-08-13 19:24] VITALS: BP 119/82; PULSE 80; RESP 17; O2SAT 99
--- NOTE | 2022-08-13 19:45 | NURSING ---
184 OB RNs called by ER nurse with concerns of pt leaning over bed swaying hips. once this RN and [facility] RN into ER room pt resting in bed. abd palpates soft, and pt reported tenderness to upper abd bilaterally. pt denies vaginal bleeding or rupture of membranes. reflexes +1 bilaterally and no clonus. pt denies headaches or visual changes. VE 1/70/-2 moderate consistency. FHR auscultated 139-144 with Doppler. maternal radial pulse 90. ER physician and [employer] updated. [address] Kem[address] ECHAVARRIA called and updated on above
[2022-08-13 19:49] LABS: Reflex Troponin-HS? (from REC) Y
[2022-08-13 19:55] LABS: ALB/GLOB Ratio 0.6 RATIO (0.9-2.4); AST(SGOT) 23 U/L (15-37); Alanine Aminotransfer ALT/SGPT 24 U/L (13-56); Albumin, Serum 2.7 g/dL (3.2-5.0); Alkaline Phosphatase 168 U/L (45-117); Anion Gap 8 (5-15); BUN 7 mg/dL (7-18); BUN/Creat Ratio 11.9 RATIO (10-20); Calcium,Total 9.1 mg/dL (8.5-10.1); Chloride 106 mmol/L (98-107); Creatinine, Serum 0.59 mg/dL (0.55-1.02); EST Glomerular Filtration Rate 136 mL/min (>60); Est Glom Filt Rate - Afr Amer 165 mL/min (>60); Estimated Creatinine Clearance 157.63 ml/min; Globulin 4.3 g/dL (2.2-4.2); Glucose 78 mg/dL (74-106); Potassium 3.8 mmol/L (3.5-5.1); Sodium Level 138 mmol/L (136-145)
[2022-08-13 20:00] VITALS: BP 109/70; PULSE 84; RESP 14; O2SAT 94
[2022-08-13] MEDS: Ondansetron 4 MG/2 ML Vial IV (20:31)
== END 2022-08-13 20:53 | disposition home or self-care (01) ==
PROVIDERS: Emergency Provider Student in an Organized Health Care Education/Training Program; Visit Provider Student in an Organized Health Care Education/Training Program
DX: O99.891 Other specified diseases and conditions complicating pregnancy (principal); O99.892 Other specified diseases and conditions complicating childbirth; R19.7 Diarrhea, unspecified; R07.9 Chest pain, unspecified; R11.2 Nausea with vomiting, unspecified; Z3A.36 36 weeks gestation of pregnancy; Z87.891 Personal history of nicotine dependence
CPT/HCPCS: 71275; 80053; 81001; 83690; 84484; 85025; 85379; 93005; 96374; 99285; Q9967; A4216; J2405

== ENCOUNTER 2022-08-18 18:55 | Inpatient (IN) | payer BC, SELFPAY ==
[2022-08-18] VITALS (9 sets, daily range): BP systolic 106–117; BP diastolic 60–73; PULSE 74–88; TEMP 36.1–36.6; O2SAT 99–100; BMI 32.8
[2022-08-18] MEDS: Lactated Ringers 1,000 ML 50 ML IV (19:42)
--- NOTE | 2022-08-18 19:57 | PCM.HP.OB ---
HPI - General General Date of Admission: 08/18/22 Date of Service: 08/18/22 HPI Narrative ANDRADE TIAN, is a 21 F @ 36.6 weeks who presents for IOL suspected cholestasis of , Possible PRE E- labs still pending for Bile salts. pt was seen in office at 36.2 weeks with c/o itching on hands and diffusely over body along with MILLER and swelling with rapid 6lb weight gain in 3 days. based on findings pt was counseled on IOL by Dr. Rodriguez and consent was signed. Maternal Data Information WILLIAM Calculator Estimated Delivery Date Method Current WG Current Estimate 09/09/22 Manual 36w 6d PFSH PFSH Home Medications [id number] fum 28 mg-folic acid 800 mcg-dha 200 mg oral pack ( + DHA) 1 pkg PO DAILY 07/20/22 [History Last Taken 07/27/22 21:00] ondansetron 4 mg disintegrating tablet 4 mg PO Q8H PRN PRN Nausea #14 tabs 08/13/22 [Rx Last Taken Unknown] Allergy/AdvReac Type Severity Reaction Status Date / Time No Known Allergies Allergy Verified 08/13/22 16:00 Surgical History History of placement of ear tubes Social History Smoking Status: Former smoker Vital Signs Vital Signs Vital Signs: 08/18/22 19:46 08/18/22 19:46 Pulse Rate 85 Blood Pressure 117/73 BP Systolic 117 BP Diastolic 73 Weight Weight: 100.924 kg Body Mass Index (BMI) 32.8 Physical Exam Narrative VE; 1/70/-2 ,transcervical zarate placed without difficulty. Const alert and oriented x3 General Appearance: cooperative HEENT normocephalic GI GI Narrative: Gravid, non tender to palpation. OB / External & Speculum: external exam normal Extremity normal to inspection Skin no rashes or lesions noted Neuro oriented x3 and CN's II-XII intact bilaterally Psych Appearance: grossly normal Labs Labs Labs: Blood Type Pending Antibody Screen Pending Hct 33.0 % (37-47) L Hgb 10.5 g/dL (12.0-15.0) L Syphilis Total Ab Pending Hep Bs Antigen Negative (Negative) Assessment & Plan (1) 36 to 37 weeks gestation of : (2) Pruritus of : (3) Headache in : PLAN: Plan Admit to L&D for IOL for Cholestasis of Cervical ripening with zarate and pitocin to start at midnight- 37 weeks gestation Montior FHR/TOCO Epidural if requested for pain Monitor VS Anticipate bile acid labs still pending from [facility] growth us from [facility] shows AGA 34%
[2022-08-18] MEDS: 0.9% Normal Saline Single 100 ML IV.SOLN. INTRA-UTER (20:01)
[2022-08-18 20:34] LABS: Absolute Lymphocyte Count 1.47 X10^3/uL (0.83-4.51); Absolute Neutrophil Count 9.1 X10^3/uL (2.0-7.7); Basophil# 0.03 X10^3/uL; Basophil% 0.3 % (0-1); Eosinophil# 0.08 X10^3/uL; Eosinophils% 0.7 % (0-5); Hematocrit 29.6 % (37-47); Hemoglobin 9.8 g/dL (12.0-15.0); Lymphocyte # 1.47 X10^3/ul (0.83-4.51); Lymphocyte % 12.9 % (19-41); Mean Corp Hgb Conc 33.1 g/dL (32-36); Mean Corpuscular Hgb 28.5 pg (27.0-32.0); Mean Platelet Vol. 10.8 fl (6.2-12.0); Monocyte# 0.63 X10^3/uL; Monocyte% 5.5 % (0-10); NRBC Flagged by Analyzer 0 % (0-5); Neutrophil # 9.13 X10^3/uL (2.7-7.7); Neutrophil % 79.9 % (47-70); Platelet Count 325 K/mm3 (150-450); RBC Distribution Width CV 12.8 % (11.6-14.6); RBC Distribution Width SD 39.6 fl (35.1-43.9); Red Blood Count 3.44 M/mm3 (4.2-5.4); White Blood Count 11.4 K/mm3 (4.4-11.0)
[2022-08-18 21:04] LABS: Syphilis Antibodies Non-reactive
[2022-08-19] VITALS (64 sets, daily range): BP systolic 85–130; BP diastolic 41–96; PULSE 66–122; TEMP 35.6–37.1; O2SAT 97–100
[2022-08-19] MEDS: Oxytocin 15 Units/NS 250ml 15 UNITS/250 ML IV.SOLN 2 UNITS IV (00:04)
[2022-08-19] MEDS: LACTATED RINGERS 500 ML 999 ML IV ×2 (05:58→06:52)
[2022-08-19] MEDS: fentaNYL-bupivacaine (epidural) 100 ML BAG EPIDURAL ×4 (06:46→21:10)
[2022-08-19] MEDS: Lactated Ringers 1,000 ML 200 ML IV ×4 (07:26→21:11)
--- NOTE | 2022-08-19 08:45 | PN.OBGYN_ITS ---
Subjective Subjective Patient sleeping sound. Comfortable with epidural. Objective Data Objective Data Vital Signs: Vital Signs Temp Pulse BP Pulse Ox 97.1 F L 67 102/60 99 08/19/22 07:35 08/19/22 08:33 08/19/22 08:33 08/19/22 08:02 Weight: 222 lb 8 oz Body Mass Index (BMI) 32.8 Intake & Output: Intake and Output for Last 24 Hours 08/17/22 08/18/22 08/19/22 23:59 23:59 23:59 Intake Total 1775.97 / 1775.97 Balance 1775.97 / 1775.97 Lab / Micro Data Result Diagrams: 08/18/22 19:40 Labs: Laboratory Results - last 24 hr 08/18/22 19:40: WBC 11.4 H, RBC 3.44 L, Hgb 9.8 L, Hct 29.6 L, MCV 86.0, MCH 28.5, MCHC 33.1, RDW Std Deviation 39.6, RDW Coeff of Maryana 12.8, Plt Count 325, MPV 10.8, Immature Gran % (Auto) 0.700, Neut % (Auto) 79.9 H, Lymph % (Auto) 12.9 L, [place] % (Auto) 5.5, Eos % (Auto) 0.7, Baso % (Auto) 0.3, Absolute Neuts (auto) 9.1 H, Absolute Lymphs (auto) 1.47, Nucleated RBC % 0 08/18/22 19:40: Blood Type O POSITIVE, Antibody Screen NEGATIVE 08/18/22 19:40: Syphilis Total Ab Non-reactive ROS Eyes Eyes: Denies blurry vision, change in vision or spots in vision ENT HEENT: Denies dizziness or headache(s) Cardiovascular Cardiovascular: Denies abdominal pain, chest pain or dyspnea Respiratory/Chest Respiratory/Chest: Denies cough, dyspnea, shortness of breath at rest or shortness of breath with exertion Gastrointestinal Gastrointestinal: Denies abdominal pain, diarrhea or vomiting Genitourinary Genitourinary: Denies change in urinary stream, difficulty urinating or dysuria Musculoskeletal Musculoskeletal: Reports none Integumentary Integumentary: Denies rash Neurologic Neurologic: Denies dizziness, headache(s), memory loss or weakness Psychiatric Psychiatric: Reports none Physical Exam Const alert, oriented x3 and no apparent distress General Appearance: cooperative Orientation / Consciousness: awake Exam Limitations: no limitations HEENT normocephalic Head and Scalp: normal to inspection Eyes General Eye: normal appearance of both eyes Neck full ROM and no lymphadenopathy Lymph Lymphatic: no lymphadenopathy noted Chest inspection of chest normal Resp normal respiratory effort, normal air movement and clear to auscultation bilaterally Effort and Inspection: able to speak in complete sentences and symmetric chest movement Cardio regular rate and regular rhythm GI normal to inspection, nondistended, normoactive bowel sounds Back/Spine normal ROM Extremity full ROM and no calf tenderness Skin no rashes or lesions noted General Skin Exam: no breakdown Neuro oriented x3 and CN's II-XII intact bilaterally Psych mental status grossly normal and thought process normal Assessment & Plan (1) 36 to 37 weeks gestation of : (2) Pruritus of : (3) Headache in : PLAN: Plan Blood pressures within normal range Pitocin at 18 mu/min- continue to increase per orders CE- 4/75/-2 Continue present plan of care Anticipate Dr. Rodriguez updated and is collaborating physician
--- NOTE | 2022-08-19 12:06 | PCM.PN.BLA ---
Progress Note Patient seen at bedside. Comfortable with epidural. Denies pain. Assessment & Plan Assessment/Plan (1) 36 to 37 weeks gestation of : (2) Pruritus of : (3) Headache in : (4) Pre-eclampsia: PLAN: Plan Blood pressures normal Denies any headache, vision changes, RUQ pain, SOB or CP AROM for moderate amount of clear fluid CE - 5/75/-2 Pitocin IV at 20 mu/min Anticipate
[2022-08-19] MEDS: Ondansetron 4 MG/2 ML Vial IV ×2 (12:54→22:59)
[2022-08-19] MEDS: Oxytocin 15 Units/NS 250ml 15 UNITS/250 ML IV.SOLN 20 UNITS IV (16:46)
--- NOTE | 2022-08-19 18:31 | PCM.PN.BLA ---
Progress Note Patient seen at bedside. Resting comfortably. Denies pain. Assessment & Plan Assessment/Plan (1) Pre-eclampsia: (2) Pruritus of : (3) 36 to 37 weeks gestation of : PLAN: Plan CE 5.5/80/-1 Pitocin at 20 mu/min since 0845 Turn off pitocin infusion for 30 minutes and give TUMS 2 Tabs PO x 1 now Restart Pitocin at 10 mu/min Cat. 2 tracing with early, variable and isolated late decelerations- over all reassuring Dr. Rodriguez on unit and updated on plan of care Anticipate
[2022-08-19] MEDS: Calcium Carbonate 500 MG Tablet 1000 MG PO (19:01)
[2022-08-20] VITALS (35 sets, daily range): BP systolic 76–119; BP diastolic 46–66; PULSE 67–97; RESP 16; TEMP 36.2–37.2; O2SAT 97–100
[2022-08-20] MEDS: Oxytocin 15 Units/NS 250ml 15 UNITS/250 ML IV.SOLN 83 UNITS IV (00:48)
[2022-08-20] MEDS: Oxytocin 10 UNITS/ML Vial IM (04:48)
--- NOTE | 2022-08-20 06:54 | EX.PCM.OBRPT ---
Assessment & Plan (1) (spontaneous vaginal delivery): (2) Laceration, obstetrical, first degree: (3) Care and examination of lactating mother: Maternal Data Information WILLIAM Calculator Estimated Delivery Date Method Current WG Current Estimate 09/09/22 Manual 37w 1d Vaginal Delivery Maternal Presentation Maternal Presentation: Medically Indicated Induction Maternal Presentation: Induction of labor for suspected cholestasis and preeclampsia. Gestational age at time of delivery 37.1 weeks. Type of Induction: Pitocin, King Bulb and Amniotomy Medical Reason for Induction: Maternal Medical Condition: list: (suspected cholestasis) and Preeclampsia, eclampsia Operative Information Date of Procedure: 08/20/22 Pre-Operative Diagnosis: Term gestation, induction of labor Post-Operative Diagnosis: , live female infant Surgery / Procedure Performed: Spontaneous Vaginal Delivery Type of Anesthesia: Epidural Drain: King to straight drain Estimated Blood Loss: 250 Time of Delivery: 00:46 Findings Description of Procedure: Called to patient's room for delivery. With minimal maternal effort, head delivered with shoulders and body immediately following without traction. Vigorous female placed on maternal abdomen and attended to by nursing staff. Pitocin IV started for active management of the third stage of labor. 3 vessel cord clamped and cut by FOB after delay. placed immediately skin to skin with patient. Placenta delivered spontaneously and intact. First degree laceration repaired in usual fashion using 3-0 Vicryl Rapid. Hemostasis obtained. Fundus firm 1 below U. EBL 250 cc. APGARS 8/9. Patient and infant bonding well at this time. All sutures and laps accounted for. Dr. Rodriguez notified of delivery. Presentation: Vertex Amniotic Membrane Rupture Type: Artificial Time of Membrane Rupture: 1200 Amniotic Fluid Description: Clear Placental Delivery Description: Spontaneous Placenta Disposition: [facility] Cord Vessel Description: 3 Vessels Cord Entanglement: None A Gender: Female (1 minute): 8 (5 minute): 9 Delayed Cord Clamping: Yes Post Vaginal Delivery Medications Given After Delivery: IV Pitocin and IM Pitocin Episiotomy Description: None Laceration: 1st degree Complication Complications: None
[2022-08-20] MEDS: Acetaminophen 500 MG Tablet 1000 MG PO (14:09)
[2022-08-21 03:25] VITALS: BP 90/45; PULSE 65; RESP 16; TEMP 36.6; O2SAT 98
[2022-08-21 06:33] VITALS: BP 106/65
[2022-08-21 08:00] VITALS: BP 106/74; PULSE 66; RESP 16; TEMP 36.2; O2SAT 99
--- NOTE | 2022-08-21 08:47 | PCM.PN.OB ---
Subjective Subjective Patient seen at bedside. Ambulating and voiding without difficulty. Denies headache, dizziness, CP, or SOB. Lochia decreasing. with minimal support. Desires discharge home today. Objective Data Objective Data Vital Signs: Vital Signs Temp Pulse Resp BP Pulse Ox O2 Del Method 97.1 F L 66 16 106/74 99 Room Air 08/21/22 08:00 08/21/22 08:00 08/21/22 08:00 08/21/22 08:00 08/21/22 08:00 08/21/22 08:00 Oxygen Delivery Method Room Air Weight: 222 lb 8 oz Body Mass Index (BMI) 32.8 Intake & Output: Intake and Output for Last 24 Hours 08/19/22 08/20/22 08/21/22 23:59 23:59 23:59 Intake Total 5571.15 / 5571.15 1016.37 / 1016.37 Output Total 1350 / 1350 1100 / 1100 Balance 4221.15 / 4221.15 -83.63 / -83.63 Lab / Micro Data Result Diagrams: 08/18/22 19:40 ROS Eyes Eyes: Denies blurry vision, change in vision or spots in vision ENT HEENT: Denies dizziness or headache(s) Cardiovascular Cardiovascular: Denies abdominal pain, chest pain or dyspnea Respiratory/Chest Respiratory/Chest: Denies cough, dyspnea, shortness of breath at rest or shortness of breath with exertion Gastrointestinal Gastrointestinal: Denies abdominal pain, diarrhea or vomiting Genitourinary Genitourinary: Denies change in urinary stream, difficulty urinating or dysuria Musculoskeletal Musculoskeletal: Reports none Integumentary Integumentary: Denies rash Neurologic Neurologic: Denies dizziness, headache(s), memory loss or weakness Physical Exam Const alert and no apparent distress General Appearance: cooperative and comfortable Exam Limitations: no limitations HEENT normocephalic Eyes General Eye: normal appearance of both eyes Neck full ROM General: normal visual inspection Chest Chest: symmetrical chest wall rise Resp normal respiratory effort and normal air movement Effort and Inspection: symmetric chest movement Auscultation: clear to auscultation bilaterally Cardio regular rate and regular rhythm GI normal to inspection, nondistended, normoactive bowel sounds Back/Spine normal ROM Extremity full ROM and no calf tenderness General Extremity: normal exam except as noted Skin no rashes or lesions noted Neuro CN's II-XII intact bilaterally Psych mental status grossly normal Assessment & Plan (1) Care and examination of lactating mother: (2) Laceration, obstetrical, first degree: (3) (spontaneous vaginal delivery): PLAN: Plan PPD 2 Routine care Blood pressures stable- no elevated readings support D/c home with follow up in office next week
--- NOTE | 2022-08-21 08:49 | DCINST_ITS ---
Discharge Instructions Diet Discharge Diet: No restrictions Activity Discharge Activity: Return to Normal Activity, May Shower and May Take a Tub Bath May resume sexual activity in: 4-6 weeks Weight Bearing Status: Weight bearing as tolerated Dressing / Incision Call your doctor if you observe: Fever of 101 or Higher, Inability to urinate, Using more than 1 pad per hour, Shortness of breath, Dizziness, Swelling in the ankles, Chest pain, Calf discomfort and Uncontrolled pain Follow Up Care Please Follow Up With: Rupinder Rojas CNM When: Within 10 days Test Results: Test results from this visit will be discussed in further detail at your follow- up appointment, if applicable. Discharge Plan Admission Admit Date/Time: 08/18/22 18:55 Primary Reason for Your Visit: Labor and Delivery Attending Provider: Rupinder Rojas Primary Care Provider: Care Physician,Robina Primary Discharge Orders/Prescriptions Prescriptions: Continued + DHA 28 mg iron-800 mcg-200 mg Combo Pack 1 pkg PO DAILY Discontinued ondansetron 4 mg tablet,disintegrating 4 mg PO Q8H PRN PRN (Reason: Nausea) Qty: 14 0RF Referrals / Follow Up: Care Physician,No Primary [Primary Care Provider] - Disposition Disposition (needs filled in before D/C Order can be placed): Home, Self Care
--- NOTE | 2022-08-21 12:05 | CASEMGMT ---
Social Work Assessment Labor and Delivery Unit Patient Address: [address] [place] [id number] Phone number: [phone] Date of Referral: 08/21/22 Time of Referral:? 08:45 Referred By: verbal acid plant helper Date of Intervention: 08/21/22? Time of Intervention:? 12 pm Reason for Referral: hx of anxiety History obtained from: medical records, mother of baby (MOB) Household composition: MOB reports she and FOB own their home with NB and have an emotional support cat and dog. No housing concerns. Patient's parent/guardian status: BHAVANI reports she has been with Karan ANAYA, for 7 months and they were one month ago. FOMarshall is actively involved with MOB and NB. FOB has no other children nor concerns with DV, AOD or MH. Medical History: BHAVANI was engaged in care with [facility] beginning at 6 weeks. This is BHAVANI?s first , NB is baby girl Vivian, born 08[birth year]20/22, apgars 8/9, weighing 2715g. MOB report NB?s biostatistics professor will be MD Riley Zurita, plan is to breast feed and exploring holistic control options. Educational Status: MOB reports highest level of education is some college, no learning concerns. Patient plans to reenroll in college for waste transportation technician. ? 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 No financial concerns reported. Supplies: MOB reports having all the supplies needed including a car seat, bassinet in their bedroom, clothes and diapers/wipes. MOB reports NB will transition to their own room when appropriate. Childcare/Caregiver(s): BHAVANI reports she will be home with NB for 12 weeks and then completing college online. MOB reports having multiple family members to assist with child life specialist if needed. Transportation: MOB report they have vehicles, no concerns. ?? Programs/Agencies Involved: ??BHAVANI is engaged in [employer] services and requesting a referral for [facility]. ? Children Services/Legal Issues: None reported??? Behavioral Health Issues: ??Mental Health History:? MOB reports history of bipolar and PTSD and has had two sessions with a new counselor, Yvonne via teletherapy. MOB unable to recall name of agency but plans to continue counseling services. MOB not prescribed medication at this time. MOB reports no previous psych hospitalization. No AOD concerns and never smoked. Family/Social Stressors:? No stressors identified. Support Systems: MOB reports she is supported by FOB, her mother, sister and aunt. Depression/Shaken Baby/Safe Sleeping: SW educated MOB on depression/anxiety as well as shaken baby and safe sleep. MOB report NB will be sleeping in a basinet beside their bed but has a crib in her nursey to transition to when she is older. SW provided MOB with educational information as well as resources on the topics. MOB report understanding and voice no other needs. SW encouraged MOB to contact OB or PCP if she is concerned with symptoms. ??? ASSESSMENT:? ASHLEIGH met with MOB and introduced herself and role as [facility] [place] Kitchen Steward. MOB in agreement to speak with SW. SW utilized open and close ended questions to gather information needed for an assessment. MOB report having supplies needed, identified supports, is engaged in counseling services, as well as WIC services and requesting referral for [facility]. MOB reports history of bipolar and PTSD, no AOD use. ?SW educated MOB on safe sleep, shaken baby and PPD/A. SW also provided local resources for [facility]. ASHLEIGH updated RN of resources provided, no concerns. Referral for [facility] made PLAN:? ?No other services requested or indicated. Sylvia Sherman RANGE ECOLOGIST, LAXMI
[2022-08-21 12:35] VITALS: BP 102/60; PULSE 67; RESP 16; TEMP 36.3; O2SAT 96
[2022-08-21 12:38] VITALS: BP 102/60; PULSE 67; RESP 16; TEMP 36.3; O2SAT 99
[2022-08-21] MEDS: Dibucaine 30 GM Tube 1 APPLIC TOPICAL (13:04)
== END 2022-08-21 13:24 | disposition home or self-care (01) | DRG 806 ==
PROVIDERS: Advanced Practice Midwife; Admitting Provider Advanced Practice Midwife; Referring Provider Advanced Practice Midwife; Visit Provider Advanced Practice Midwife
DX: O76 Abnormality in fetal heart rate and rhythm complicating labor and delivery (principal); Z37.0 Single live birth; O26.62 Liver and biliary tract disorders in childbirth; O14.94 Unspecified pre-eclampsia, complicating childbirth; K76.89 Other specified diseases of liver; L29.8 Other pruritus; E78.79 Other disorders of bile acid and cholesterol metabolism; O99.72 Diseases of the skin and subcutaneous tissue complicating childbirth; Z3A.37 37 weeks gestation of pregnancy; O70.0 First degree perineal laceration during delivery; Z87.891 Personal history of nicotine dependence
CPT/HCPCS: 59025; 59050; 85025; 86780; 86850; 86900; 86901; 99221; J7120; G0378; J2405

== ENCOUNTER 2022-09-01 04:02 | Emergency (ER) | payer BC, SELFPAY ==
[2022-09-01 04:03] VITALS: BP 105/62; PULSE 62; RESP 18; TEMP 36.5; O2SAT 97; BMI 30.6
--- NOTE | 2022-09-01 04:56 | CT_ITS ---
STUDY: CT ABDOMEN AND PELVIS WITH CONTRAST - URINARY TRACT REASON FOR EXAM: Female, 21 years old. LLQ abd pain RADIATION DOSAGE (If Supplied By Facility): CTDIvol = ( 14.55 ) mGy, DLP = ( 1063.37 ) mGycm TECHNIQUE: IV 100mL Isovue-370 was administered. Transaxial images were obtained from the dome of the diaphragm to the symphysis pubis in the arterial, nephrographic and excretory phases. Multiplanar coronal and sagittal images were reformatted. Individualized Dose Optimization Techniques Were Used For This CT. COMPARISON: FINDINGS: The visualized lung bases are unremarkable. The visualized portions of the heart are within normal limits. Normal liver. Normal gallbladder and extrahepatic biliary system. Normal spleen. Normal pancreas. Normal bilateral adrenal glands. Normal visualized stomach. Normal small intestine. Normal colon. The appendix is visualized and appears normal. Normal abdominal aorta. No retroperitoneal adenopathy. Normal right kidney. Normal left kidney. Normal urinary bladder. Normal abdominal wall. Normal osseous structures. CT/Abdomen/Pelvis W IV Cont ONLY IMPRESSION: Unremarkable study. Electronically Signed: Mohit Mcconnell MD at 6:23 EDT ,
[2022-09-01 05:05] LABS: Absolute Lymphocyte Count 2.26 X10^3/uL (0.83-4.51); Absolute Neutrophil Count 10.5 X10^3/uL (2.0-7.7); Basophil# 0.04 X10^3/uL; Basophil% 0.3 % (0-1); Eosinophil# 0.21 X10^3/uL; Eosinophils% 1.5 % (0-5); Hematocrit 36.7 % (37-47); Hemoglobin 11.4 g/dL (12.0-15.0); Lymphocyte # 2.26 X10^3/ul (0.83-4.51); Lymphocyte % 16.3 % (19-41); Mean Corp Hgb Conc 31.1 g/dL (32-36); Mean Corpuscular Hgb 27.3 pg (27.0-32.0); Mean Corpuscular Volume 87.8 fL (81-99); Mean Platelet Vol. 10.8 fl (6.2-12.0); Monocyte# 0.77 X10^3/uL; Monocyte% 5.6 % (0-10); NRBC Flagged by Analyzer 0 % (0-5); Neutrophil # 10.47 X10^3/uL (2.7-7.7); Neutrophil % 75.7 % (47-70); Platelet Count 415 K/mm3 (150-450); RBC Distribution Width CV 12.3 % (11.6-14.6); RBC Distribution Width SD 39.5 fl (35.1-43.9); Red Blood Count 4.18 M/mm3 (4.2-5.4); White Blood Count 13.8 K/mm3 (4.4-11.0)
[2022-09-01 05:06] LABS: Color, Urine Yellow (Yellow); Glucose, Dipstick Normal (Normal); Ketone-Dipstick Negative (Negative); Leukocyte Esterase-Dipstick 500 /ul (Negative); Nitrite-Dipstick Negative (Negative); Occult Blood-Urine 50 /ul (Negative); Protein-Dipstick 15 mg/dl (Negative); Urine Bilirubin Dipstick Negative (Negative); Urine Clarity Clear (Clear); Urine Urobilinogen 1 mg/dl (Normal)
[2022-09-01] MEDS: Ondansetron 4 MG/2 ML Vial IV (05:07)
[2022-09-01] MEDS: 0.9% Normal Saline 1,000 ML 1000 ML IV (05:07)
[2022-09-01] MEDS: Morphine 4 MG/ML Syringe IV (05:08)
[2022-09-01 05:12] LABS: Red Blood Cells-Urine 0-5 SEEN /hpf (0-5); Squamous Epithelial Cells - UA 0-5 SEEN /hpf (5-10)
[2022-09-01 05:13] LABS: Bacteria 2+ /hpf (None Seen); Mucous, Urine 1+ /hpf (<or=2+); White Blood Cells 25-50 SEEN /hpf (0-5)
[2022-09-01 05:23] LABS: ALB/GLOB Ratio 0.8 RATIO (0.9-2.4); AST(SGOT) 137 U/L (15-37); Alanine Aminotransfer ALT/SGPT 85 U/L (13-56); Albumin, Serum 3.2 g/dL (3.2-5.0); Alkaline Phosphatase 192 U/L (45-117); Anion Gap 5 (5-15); BUN 15 mg/dL (7-18); BUN/Creat Ratio 16.9 RATIO (10-20); Calcium,Total 9.4 mg/dL (8.5-10.1); Chloride 109 mmol/L (98-107); Creatinine, Serum 0.89 mg/dL (0.55-1.02); EST Glomerular Filtration Rate 85 mL/min (>60); Est Glom Filt Rate - Afr Amer 103 mL/min (>60); Globulin 3.8 g/dL (2.2-4.2); Glucose 91 mg/dL (74-106); Sodium Level 141 mmol/L (136-145)
--- NOTE | 2022-09-01 06:45 | US_ITS ---
STUDY: ABDOMINAL ULTRASOUND - RIGHT UPPER QUADRANT REASON FOR VISIT: Female, 21 years old. Elevated liver enzymes. Pain. TECHNIQUE: Ultrasound evaluation of the right upper quadrant was performed with real-time and static young-scale imaging. TECHNICAL QUALITY: Adequate. COMPARISON: CT dated 09/01/2022 FINDINGS: Liver: The liver measures 17.6 cm. There is normal echogenicity of the liver. The bile ducts are within normal limits. There is hepatic color flow. The direction of portal flow is hepatopetal. There is no demonstrated mass lesion. Gallbladder: Normal distended gallbladder. The gallbladder wall measures 2 mm. There is a negative sonographic Schwarz''s sign. There is no pericholecystic fluid. There are multiple echogenic structures within the gallbladder, consistent with multiple gallstones. Common Bile Duct (C.B.D.): The common bile duct measures 5 mm. Pancreas: The head and body of the pancreas are within normal limits. The pancreatic tail is not well-visualized due to bowel gas. There is no demonstrated pancreatic mass or cyst. Right Kidney: Normal size of the right kidney. The right kidney measures 10.8 cm. Normal renal cortex. There is no demonstrated renal mass or cyst. There is no right hydronephrosis. US/Gallbladder IMPRESSION: Cholelithiasis without sonographic evidence of acute cholecystitis. Electronically Signed: Tim Buck MD at 8:09 EDT ,
[2022-09-01 07:44] VITALS: BP 95/57; PULSE 59; RESP 16; O2SAT 98
--- NOTE | 2022-09-01 08:08 | EDS_ITS ---
HPI History of Present Illness Chief Complaint: Flank Pain Informant: patient Narrative Narrative: Patient is a 21-year-old female who is 2 weeks presenting with worsening low back pain. Patient states for the past 4-5 nights she has had mid to low back pain that she would take Tums for and will go away. Tonight it did not go away and it woke her up from sleep. She denies any urinary symptoms such as painful urination or increased frequency of urination. Her vaginal bleeding is starting to stop . She is breast-feeding. She did have an episode of nausea and vomiting prior to arrival. Patient states that she was induced for preeclampsia and cholestasis of on August 20. She had a vaginal delivery with no complications. Patient did have an epidural. Patient denies any change in her bowel movements. No other complaints at this time. Her VENETIAN BLIND CLEANER is Dr. Rodriguez and she was delivered by Rupinder Rojas [facility] Medical History Anxiety Care and examination of lactating mother Laceration, obstetrical, first degree Pre-eclampsia (spontaneous vaginal delivery) Home Medications [id number] fum 28 mg-folic acid 800 mcg-dha 200 mg oral pack ( + DHA) 1 pkg PO DAILY 07/20/22 [History Last Taken 07/27/22 21:00] cephalexin 500 mg capsule 500 mg PO Q12 #14 CAPSULES 09/01/22 [Rx Last Taken Unknown] Allergy/AdvReac Type Severity Reaction Status Date / Time No Known Allergies Allergy Verified 08/13/22 16:00 Surgical History History of placement of ear tubes Social History Smoking Status: Never smoker ROS ROS ED Constitutional Constitutional ED: Denies chills or fever(s) Eyes Eyes: Denies change in vision ENT ENT ED: Denies sore throat Cardiovascular Cardiovascular: Denies chest pain or palpitations Respiratory/Chest Respiratory/Chest: Denies cough or dyspnea Gastrointestinal Gastrointestinal: Reports nausea and vomiting; Denies abdominal pain Genitourinary Genitourinary ED: Denies dysuria, hematuria or urinary frequency Musculoskeletal Musculoskeletal: Reports back pain; Denies arthralgias, myalgias or neck pain Integumentary Denies rash Neurologic Neurologic: Denies headache(s) or weakness EXAM Physical Exam Const Vital Signs: 09/01/22 04:03 09/01/22 04:08 09/01/22 07:44 Temperature 97.7 F L Temperature Source Oral Pulse Rate 62 59 L Respiratory Rate 18 16 Respiratory Effort Normal Non-Labored Respiratory Pattern Normal Blood Pressure 105/62 95/57 L Blood Pressure Mean 76 69 Pulse Ox 97 98 Oxygen Delivery Method Room Air Positive well nourished and well developed General Appearance ED: well developed and NAD HEENT Reports moist mucous membranes Eyes PERRL and EOMs intact bilaterally Neck supple Chest Wall inspection of chest normal and palpation of chest normal Resp normal respiratory effort and clear to auscultation bilaterally Cardio regular rate, regular rhythm and no murmurs GI non-distended GI Narrative: Uterus is not palpable Auscultation: normoactive bowel sounds Palpation: soft and tender LLQ and suprapubic; Negative for mass or rebound tenderness present Back/Spine no CVA tenderness Thoracic Spine / Upper Back: Negative for thoracic spinal tenderness Lumbar Spine / Lower Back: Negative for lumbar spinal tenderness Extremity normal to inspection General Extremety ED: Negative for edema General Extremity: Negative for edema Neuro oriented x3 Sensorium / Orientation: alert Motor Exam: Negative for general weakness Psych mental status grossly normal Skin no rashes or lesions noted and no wounds MDM MDM MDM Narrative Medical decision making narrative: Patient is evaluated for worsening back pain. On exam she has left lower q uadrant abdominal pain. She does not have pain in her right upper quadrant. Patient does have a leukocytosis of 13.8. Urinalysis is concerning for infection however there is some mild contamination. Given her low back pain and leukocytosis we will treat with Keflex. Patient is found to have a mild elevation of her AST and ALT as well as her alkaline phosphatase. Her bilirubin is normal so a lower suspicion for an obstructive process. CT of the abdomen pelvis was obtained which did not show any acute process to explain her symptoms. Specifically there is no obstructive renal stone, pyelonephritis or colitis. Of right upper quadrant ultrasound is added on which does show cholelithiasis without sonographic evidence of acute cholecystitis. Patient be given outpatient surgery follow-up. Counseled on this finding. I did discuss her work-up with OB on-call, Rupinder Rojas, given that she is 2 weeks . Patient has normal platelets and is not hypertensive. She is not complain of a headache. I do not think this is eclampsia/help. Patient did have cholestasis of so its possible that her elevation of her AST and ALT are associated with that. Patient is given return precautions. Given first dose of Keflex in the emergency room. Lab Data Attestation: I reviewed the patient's lab results. Labs: Laboratory Results - last 24 hr 09/01/22 09/01/22 09/01/22 04:41 04:41 04:41 WBC 13.8 H RBC 4.18 L Hgb 11.4 L Hct 36.7 L MCV 87.8 MCH 27.3 MCHC 31.1 L RDW Std Deviation 39.5 RDW Coeff of Maryana 12.3 Plt Count 415 MPV 10.8 Immature Gran % (Auto) 0.600 Neut % (Auto) 75.7 H Lymph % (Auto) 16.3 L [place] % (Auto) 5.6 Eos % (Auto) 1.5 Baso % (Auto) 0.3 Absolute Neuts (auto) 10.5 H Absolute Lymphs (auto) 2.26 Nucleated RBC % 0 Sodium 141 Potassium 4.0 Chloride 109 H Carbon Dioxide 27.0 Anion Gap 5 BUN 15 Creatinine 0.89 Estim Creat Clear Calc 104.50 Est GFR (MDRD) Af Amer 103 Est GFR (MDRD) Non-Af 85 BUN/Creatinine Ratio 16.9 Glucose 91 Calcium 9.4 Total Bilirubin 0.40 AST 137 H ALT 85 H Alkaline Phosphatase 192 H Total Protein 7.0 Albumin 3.2 Globulin 3.8 Albumin/Globulin Ratio 0.8 L Urine Color Yellow Urine Clarity Clear Urine pH 7.0 Ur Specific [place] 1.010 Urine Protein 15 H Urine Glucose (UA) Normal Urine Ketones Negative Urine Occult Blood 50 H Urine Nitrite Negative Urine Bilirubin Negative Urine Urobilinogen 1 H Ur Leukocyte Esterase 500 H Urine RBC 0-5 SEEN Urine WBC 25-50 SEEN Ur Squamous Epith Cells 0-5 SEEN Urine Bacteria 2+ Urine Mucus 1+ Radiography Diagnostic Testing: Clinical Impression(s) from Imaging Studies Abdomen/Pelvis CT 09/01/22 04:56 IMPRESSION: Unremarkable study. Electronically Signed: Mohit Mcconnell MD at 6:23 EDT , Discharge Plan Triage Chief Complaint: Flank Pain ED Provider: Christen Maki Dx/Rx/DC Orders Clinical Impression: UTI (urinary tract infection), Elevated liver enzymes, Back pain, Gall stone Instructions: ED Gallstones with Biliary Colic, ED Cystitis Female Adult Prescriptions: New cephalexin 500 mg capsule 500 mg PO Q12 Qty: 14 0RF No Action + DHA 28 mg iron-800 mcg-200 mg Combo Pack 1 pkg PO DAILY Primary Care Provider: Care Physician,No Primary Referrals: Rupinder Rojas CNM [Med Staff - Adv Practice Prof] - 3-5 Days Ishaan Estrella MD [Med Staff - Active Staff] - As Needed Care Physician,No Primary [Primary Care Provider] - Activity Restrictions/Additional Instructions: Your work-up today was concerning for urinary tract infection. You been started on Keflex for this. You do have a mild elevation of your AST and ALT which are liver enzymes. This should be monitored. You also have gallstones. If you develop abdominal pain especially in the right upper abdomen or worsening pain after eating please return to the emergency room. Is possible this could be a s ymptoms of gallstones causing problems or a gallbladder attack. You been given referral for surgeon, Dr. Estrella for follow-up on this. Please make sure you follow-up with your VENETIAN BLIND CLEANER this week as we discussed. Disposition Disposition: Home, Self Care
[2022-09-01] MEDS: Cephalexin 250 MG Capsule 500 MG PO (08:15)
== END 2022-09-01 08:33 | disposition home or self-care (01) ==
PROVIDERS: Emergency Provider Emergency Medicine; Visit Provider Emergency Medicine
DX: N39.0 Urinary tract infection, site not specified (principal); R74.8 Abnormal levels of other serum enzymes; M54.50 Low back pain, unspecified; K80.20 Calculus of gallbladder without cholecystitis without obstruction
CPT/HCPCS: 74177; 76705; 80053; 81001; 85025; 87086; 87088; 96361; 96374; 96375; 99285; J7030; A4216; J2405

== ENCOUNTER → 2022-09-11 | Outpatient (CLI) | payer BC, SELFPAY ==
[2022-09-11 16:28] LABS: AST(SGOT) 17 U/L (15-37); Alanine Aminotransfer ALT/SGPT 24 U/L (13-56); Albumin, Serum 3.5 g/dL (3.2-5.0); Alkaline Phosphatase 137 U/L (45-117); Bilirubin, Direct 0.05 mg/dL (0.00-0.30); Globulin 3.8 g/dL (2.2-4.2); Protein, Total 7.3 g/dL (6.4-8.2)
== END | disposition home or self-care (01) ==
LOC: LAB 14:24
PROVIDERS: Visit Provider Surgery
DX: R79.89 Other specified abnormal findings of blood chemistry (principal)
CPT/HCPCS: 36415; 80076

== ENCOUNTER 2023-08-07 20:40 | Emergency (ER) | payer OTHER, SELFPAY ==
[2023-08-07 20:43] VITALS: BP 118/77; PULSE 86; RESP 18; TEMP 36.3; O2SAT 100; BMI 35.9
--- NOTE | 2023-08-07 21:00 | EX.ED.DYSGE1 ---
HPI <DEVANG Sanabria - Last Filed: 08/07/23 21:34> History of Present Illness Chief Complaint: Wound Check Narrative Narrative: Patient presenting today with concerns for a splinter in her left buttocks. She was sitting on her porch yesterday when a piece of wood got stuck in her bottom, she was able to pull a large piece out but she thinks a piece remains. She denies any fevers or chills. PFSH <DEVANG Sanabria - Last Filed: 08/07/23 21:34> PFSH Medical History Anxiety Care and examination of lactating mother Laceration, obstetrical, first degree Pre-eclampsia (spontaneous vaginal delivery) Home Medications cephalexin 500 mg capsule 500 mg PO TID 5 days #15 caps 08/07/23 [Rx Last Taken Unknown] Allergy/AdvReac Type Severity Reaction Status Date / Time No Known Allergies Allergy Verified 08/07/23 20:42 Family History Grandmother Breast cancer Father Lupus Mother Crohn's disease Surgical History History of placement of ear tubes Social History Smoking Status: Never smoker ROS <DEVANG Sanabria - Last Filed: 08/07/23 21:34> ROS ED Constitutional Constitutional ED: Denies chills or fever(s) Cardiovascular Cardiovascular: Denies chest pain Respiratory/Chest Respiratory/Chest: Denies dyspnea Integumentary Reports other Details: Skin foreign body EXAM <DEVANG Sanabria - Last Filed: 08/07/23 21:34> Physical Exam Const Vital Signs: 08/07/23 20:43 08/07/23 21:36 Temperature 97.3 F L 98.3 F Temperature Source Temporal Pulse Rate 86 57 L Respiratory Rate 18 16 Blood Pressure 118/77 116/73 Blood Pressure Mean 90 87 Pulse Ox 100 98 Oxygen Delivery Method Room Air Positive well nourished, well developed and no apparent distress General Appearance ED: well developed HEENT Reports normocephalic and head/scalp atraumatic Mouth ED: Yes moist mucous membranes normal Eyes PERRL and EOMs intact bilaterally Neck full ROM and supple Chest Wall inspection of chest normal Resp normal respiratory effort and clear to auscultation bilaterally Cardio regular rate and regular rhythm GI soft to palpation, non-tender, non-distended and no masses Back/Spine normal ROM and normal to inspection Extremity normal to inspection and full ROM Neuro oriented x3, CN's II-XII intact bilaterally, moves all extremities, no focal motor deficits and no sensory deficits noted Sensorium / Orientation: awake and alert Psych mental status grossly normal and thought process normal Skin Skin Narrative: Small area of erythema to the left buttocks with small wood splinter just below the skin surface. <Dr. Nam Morales MD - Last Filed: 08/07/23 23:28> Physical Exam Const Vital Signs: 08/07/23 20:43 08/07/23 21:36 Temperature 97.3 F L 98.3 F Temperature Source Temporal Pulse Rate 86 57 L Respiratory Rate 18 16 Blood Pressure 118/77 116/73 Blood Pressure Mean 90 87 Pulse Ox 100 98 Oxygen Delivery Method Room Air MDM <DEVANG Sanabria - Last Filed: 08/07/23 21:34> [facility] Narrative Medical decision making narrative: Patient presenting today with concerns for splinter stuck in her left buttocks. There is an area of erythema with a small splinter just seen below the skin surface. This was removed, see procedure note, patient tolerated procedure well. A 1 cm splinter was removed. Patient will be placed on short course of Keflex with first dose here. Wound care instructions discussed, return instructions given and she will be discharged home in stable condition. <Dr. Nam Morales MD - Last Filed: 08/07/23 23:28> [facility] Narrative Medical decision making narrative: Patient presenting today with concerns for splinter stuck in her left buttocks. There is an area of erythema with a small splinter just seen below the skin surface. This was removed, see procedure note, patient tolerated procedure well. A 1 cm splinter was removed. Patient will be placed on short course of Keflex with first dose here. Wound care instructions discussed, return instructions given and she will be discharged home in stable condition. I have personally performed a face to face assessment of the patient and have reviewed the SERGIO Note. I performed a substantive portion of the visit including all aspects of the following. My topete findings include: History is remarkable for wooden foreign body left buttock cheek. She removed what she believes to be a splinter. Patient believes it is retained wood. Exam is there is slight area erythema. The piece of retained what is palpable. Incision was made. A piece of wood that was 1 cm length was removed. Cavity was cleaned. Patient was placed on short course of antibiotics. Medical Decision Making patient with retained foreign body and concern for infection. To remove foreign body incision was made. This was performed by the physician occupational therapist assistant under my guidance. Other additions or changes: [None] Procedures <DEVANG Sanabria - Last Filed: 08/07/23 21:34> Other Procedures Procedure(s): L buttocks was cleaned with alcohol wipe, area was then anesthetized with 1 cc 1% lidocaine, very small superficial incision was made with a #15 blade and I was able to use forceps to pull out a 1 cm sized splinter. Bacitracin ointment applied to the wound with a Band-Aid. Discharge Plan Triage Chief Complaint: Wound Check ED Midlevel Provider: Cindy Mendez ED Provider: Nam Morales Dx/Rx/DC Orders Clinical Impression: Foreign body (FB) in soft tissue Instructions: ED Foreign Body, Soft Tissue (Removed) Prescriptions: New cephalexin 500 mg capsule 500 mg PO TID 5 Days Qty: 15 0RF Primary Care Provider: Care Physician,No Primary Referrals: Care Physician,No Primary [Primary Care Provider] - Activity Restrictions/Additional Instructions: Keep area clean, return for any signs of infection. Disposition Disposition: Home, Self Care Discharge Date/Time: 08/07/23 21:41
[2023-08-07 21:36] VITALS: BP 116/73; PULSE 57; RESP 16; TEMP 36.8; O2SAT 98
[2023-08-07] MEDS: Cephalexin 250 MG Capsule 500 MG PO (21:39)
== END 2023-08-07 21:41 | disposition home or self-care (01) ==
PROVIDERS: Emergency Provider Emergency Medicine; Visit Provider Emergency Medicine
DX: M60.28 Foreign body granuloma of soft tissue, not elsewhere classified, other site (principal); Z18.33 Retained wood fragments
CPT/HCPCS: 10120; 99282

== ENCOUNTER 2023-10-28 21:08 | Emergency (ER) | payer OTHER, SELFPAY ==
[2023-10-28 21:09] VITALS: BP 123/64; PULSE 102; RESP 18; TEMP 36.8; O2SAT 95; BMI 36.2
[2023-10-28 22:58] LABS: Absolute Neutrophil Count 9.1 X10^3/uL (2.0-7.7); Basophil# 0.02 X10^3/uL; Basophil% 0.2 % (0-1); Eosinophil# 0.24 X10^3/uL; Eosinophils% 2.2 % (0-5); Hematocrit 39.5 % (37-47); Hemoglobin 12.5 g/dL (12.0-15.0); Lymphocyte % 8.3 % (19-41); Mean Corp Hgb Conc 31.6 g/dL (32-36); Mean Corpuscular Hgb 26.5 pg (27.0-32.0); Mean Corpuscular Volume 83.9 fL (81-99); Mean Platelet Vol. 10.4 fl (6.2-12.0); Monocyte# 0.42 X10^3/uL; Monocyte% 3.9 % (0-10); NRBC Flagged by Analyzer 0 % (0-5); Neutrophil # 9.14 X10^3/uL (2.7-7.7); Neutrophil % 84.8 % (47-70); Platelet Count 317 K/mm3 (150-450); RBC Distribution Width CV 14.3 % (11.6-14.6); Red Blood Count 4.71 M/mm3 (4.2-5.4); White Blood Count 10.8 K/mm3 (4.4-11.0)
[2023-10-28 23:08] VITALS: BP 123/80; PULSE 77; RESP 18; O2SAT 99
[2023-10-28 23:50] LABS: Internal QC Validated? YES +Cl - CLEAR BKGD; Pregnancy, Serum, hCG Quali. NEGATIVE Negative; Record Kit Lot#, Serum Preg. 772476
[2023-10-28 23:52] LABS: Anion Gap 5 (5-15); BUN 10 mg/dL (7-18); BUN/Creat Ratio 12.5 RATIO (10-20); Calcium,Total 8.6 mg/dL (8.5-10.1); Chloride 109 mmol/L (98-107); EST Glomerular Filtration Rate 95 mL/min (>60); Est Glom Filt Rate - Afr Amer 114 mL/min (>60); Estimated Creatinine Clearance 146.76 ml/min; Glucose 100 mg/dL (74-106); Potassium 3.8 mmol/L (3.5-5.1); Sodium Level 141 mmol/L (136-145)
--- NOTE | 2023-10-28 23:54 | ED.VIS.FEGU ---
HPI HPI - Female History of Present Illness Chief Complaint: Vag Bleeding Informant: patient Narrative Narrative: Patient presents with heavy menstrual bleeding for the past 2 days, she is passing clots. She is having diffuse pelvic cramping off-and-on associated with this. She is feeling tired but no lightheadedness or near syncope. No vomiting. No fevers or chills. No vaginal discharge of other type. No urinary symptoms. She did a urine test recently and it was negative. She states her cycles are typically about 38 days apart but usually regular. She states recently she was 40 days late, telling me that her last cycle started 78 days ago before the bleeding just started 2 days ago. [facility] Medical History Anxiety Care and examination of lactating mother Laceration, obstetrical, first degree Pre-eclampsia (spontaneous vaginal delivery) Home Medications ?Medication ?Instructions ?Recorded ?Last Taken ?Type cephalexin 500 mg capsule 500 mg PO TID 5 days #15 caps 08/07/23 Unknown Rx clindamycin HCl 300 mg capsule 300 mg PO TID 5 days #15 CAPSULES 08/08/23 Unknown Rx (Cleocin HCl) ibuprofen 600 mg tablet 600 mg PO Q8H PRN PRN fever or 10/28/23 Unknown Rx pain #20 TABLETS Allergy/AdvReac Type Severity Reaction Status Date / Time Penicillins (PCN) Allergy Mild Rash Verified 10/28/23 21:13 Family History Grandmother Breast cancer Father Lupus Mother Crohn's disease Surgical History History of placement of ear tubes Social History Smoking Status: Never smoker ROS ROS ED Constitutional Constitutional ED: Reports fatigue; Denies chills or fever(s) Eyes Eyes: Denies change in vision or diplopia ENT ENT ED: Denies rhinorrhea or sore throat Cardiovascular Cardiovascular: Denies chest pain or palpitations Respiratory/Chest Respiratory/Chest: Denies cough or dyspnea Gastrointestinal Gastrointestinal: Reports abdominal pain; Denies diarrhea, nausea or vomiting Genitourinary Genitourinary ED: Denies dysuria or hematuria Musculoskeletal Musculoskeletal: Denies back pain or neck pain Integumentary Denies abscess or rash Neurologic Neurologic: Denies headache(s), paresthesias or weakness Psychiatric Psychiatric: Denies anxiety or suicidal thoughts EXAM Physical Exam Const Vital Signs: 10/28/23 21:09 10/28/23 23:08 10/29/23 00:21 Temperature 98.3 F Temperature Source Temporal Pulse Rate 102 H 77 Pulse Rate [Lying] 77 Pulse Rate [Sitting (for 1 minute prior to obtaining)] 80 Pulse Rate [Standing (for 1 minute prior to obtaining)] 87 Respiratory Rate 18 18 Blood Pressure 123/64 H 123/80 H Blood Pressure [Lying] 106/62 Blood Pressure [Sitting (for 1 minute prior to obtaining)] 110/76 Blood Pressure [Standing (for 1 minute prior to obtaining)] 131/59 H Blood Pressure Mean 83 94 Blood Pressure Mean [Lying] 76 Blood Pressure Mean [Sitting (for 1 minute prior to obtaining)] 87 Blood Pressure Mean [Standing (for 1 minute prior to obtaining)] 83 Pulse Ox 95 99 Oxygen Delivery Method Room Air Room Air Positive well nourished and well developed General Appearance ED: well developed and NAD HEENT Reports moist mucous membranes normocephalic and atraumatic Eyes PERRL and EOMs intact bilaterally Neck full ROM and supple Resp normal respiratory effort and clear to auscultation bilaterally Cardio regular rate, regular rhythm and no murmurs GI non-tender and non-distended Auscultation: normoactive bowel sounds Palpation: soft Back/Spine no CVA tenderness General Back: other FROM Extremity normal to inspection General Extremety ED: Negative for edema, pulses abnormal or tenderness General Extremity: Negative for edema or pulses abnormal Neuro oriented x3, CN's II-XII intact bilaterally and no sensory deficits noted Sensorium / Orientation: awake and alert Motor Exam: strength 5/5 throughout Psych mental status grossly normal Skin no rashes or lesions noted and no wounds MDM MDM MDM Narrative Medical decision making narrative: Serum is negative, blood counts are excellent with a hemoglobin of 12.5 higher than her last measurement, and the rest of her labs are normal. Orthostatics are negative. She did well here and was not in a lot of pain at this current time. I do not think she needs an emergent ultrasound given her negative test ruling out ectopic . 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 Lab Data Attestation: I reviewed the patient's lab results. Labs: Laboratory Results - last 24 hr 10/28/23 22:45 WBC 10.8 RBC 4.71 Hgb 12.5 Hct 39.5 MCV 83.9 MCH 26.5 L MCHC 31.6 L RDW Std Deviation 44.0 H RDW Coeff of Maryana 14.3 Plt Count 317 MPV 10.4 Immature Gran % (Auto) 0.600 Neut % (Auto) 84.8 H Lymph % (Auto) 8.3 L [place] % (Auto) 3.9 Eos % (Auto) 2.2 Baso % (Auto) 0.2 Absolute Neuts (auto) 9.1 H Absolute Lymphs (auto) 0.90 Nucleated RBC % 0 Sodium 141 Potassium 3.8 Chloride 109 H Carbon Dioxide 27.0 Anion Gap 5 BUN 10 Creatinine 0.80 Estim Creat Clear Calc 146.76 Est GFR (MDRD) Af Amer 114 Est GFR (MDRD) Non-Af 95 BUN/Creatinine Ratio 12.5 Glucose 100 Calcium 8.6 Serum , Qual NEGATIVE Discharge Plan Triage Chief Complaint: Vag Bleeding ED Provider: Misha Ahumada Dx/Rx/DC Orders Clinical Impression: Menorrhagia with irregular cycle Instructions: ED Heavy Menstrual Bleeding Prescriptions: New ibuprofen 600 mg tablet 600 mg PO Q8H PRN PRN (Reason: fever or pain) Qty: 20 0RF No Action cephalexin 500 mg capsule 500 mg PO TID 5 Days Qty: 15 0RF clindamycin HCl [Cleocin HCl] 300 mg capsule 300 mg PO TID 5 Days Qty: 15 0RF Primary Care Provider: Care Physician,No Primary Referrals: Doctor,Your [Non-Staff] - 3-5 Days if not improving (your PHYSICAL THERAPIST CLINIC DIRECTOR) Print Language: Uzbek Disposition Disposition: Home, Self Care Discharge Date/Time: 10/29/23 00:25
[2023-10-29 00:21] VITALS: BP 106/62; BP 110/76; BP 131/59; PULSE 77; PULSE 80; PULSE 87
[2023-10-29] MEDS: Ondansetron ODT 4 MG Tablet PO (00:24)
== END 2023-10-29 00:25 | disposition home or self-care (01) ==
PROVIDERS: Emergency Provider Emergency Medicine; Visit Provider Emergency Medicine
DX: N92.1 Excessive and frequent menstruation with irregular cycle (principal)
CPT/HCPCS: 80048; 84703; 85025; 99284; A4216; J2405